=== PATIENT | male | born 1995 | race Asian ===

== ENCOUNTER 2020-11-26 11:05 | Emergency (ER) | payer OTHER ==
[~2020-11-26] VITALS: Ht 180.3 cm; Wt 104.3 kg
--- NOTE | 2020-11-26 11:09 | NUR ---
PT TAKEN TO BED 11
[2020-11-26 11:12] VITALS: BP 148/71
--- NOTE | 2020-11-26 11:16 | NUR ---
25 Y/O MALE C/O DISCOMFORT DESCRIBES STINGING /10 TO L ANKLE X3.5HRS AGO. PT STATES HE JUST GOT A NEW PUPPY. PT DENIES N/V, DENIES FEVER/CHILLS. 2 SCRATCHES NOTED TO LEFT ANKLE NO ACTIVE BLEEDING. PMH: ASTHMA NKA
--- NOTE | 2020-11-26 11:20 | NUR ---
DR KHAN AT BEDSIDE EVALUATING PT
--- NOTE | 2020-11-26 11:37 | NUR ---
health information technician at pt bedside.
[2020-11-26] MEDS ORDERED: BACI1PAC6 TP (12:30)
[2020-11-26] MEDS: BACITRACIN OINT 500 UNITS/GM PKT TP ONE (12:39)
[2020-11-26 12:40] VITALS: BP 148/71
--- NOTE | 2020-11-26 12:41 | NUR ---
Patient discharged with v/s stable. Written and verbal after care instructions given and explained. Patient alert, oriented and verbalized understanding of instructions. Ambulatory with steady gait. All questions addressed prior to discharge. ID band removed. Patient advised to follow up with PMD. Rx of BACITRACIN 5000 UNITS TOPICAL DAILY TO AFFECTED AREA given. Patient educated on indication of medication including possible reaction and side effects. Opportunity to ask questions provided and answered.
== END 2020-11-26 12:41 | disposition home or self-care (01) ==
LOC: MED 11:05
DX: S90.512A Abrasion, left ankle, initial encounter (principal); M79.89 Other specified soft tissue disorders; Z79.2 Long term (current) use of antibiotics; W54.0XXA Bitten by dog, initial encounter; Y93.89 Activity, other specified; Y92.89 Other specified places as the place of occurrence of the external cause; Y99.8 Other external cause status
CPT/HCPCS: 71045; 99283